=== PATIENT | female | born 1980 | race Caucasian/White ===

== ENCOUNTER 2017-09-06 13:47 | Inpatient (IN) | payer MEDICAID, OTHER ==
[2017-09-06 15:12] LABS: Basophils % (Auto) 0.2 % (0.0-1.8); Eosinophils # (Auto) 0.1 K/mm3 (0.0-0.4); Eosinophils % (Auto) 0.9 % (0.0-4.3); Hematocrit 37.1 % (30.3-42.9); Hemoglobin 12.1 gm/dl (10.1-14.3); Lymphocytes # (Auto) 1.7 K/mm3 (1.2-5.4); Lymphocytes % (Auto) 13.5 % (13.4-35.0); Mean Corpuscular HGB Conc 33 % (30-34); Mean Corpuscular Volume 79 fl (79-97); Monocytes # (Auto) 0.7 K/mm3 (0.0-0.8); Monocytes % (Auto) 5.2 % (0.0-7.3); Platelet Count 273 K/mm3 (140-440); Red Blood Count 4.67 M/mm3 (3.65-5.03); Red Cell Distribution Width 13.6 % (13.2-15.2)
[2017-09-06 15:15] LABS: Mean Corpuscular Hemoglobin 26 pg (28-32)
[2017-09-06] MEDS ORDERED: ZOFRAN IV ONE ×3 (15:46→22:04)
[2017-09-06] MEDS ORDERED: NACL 0.9% 1000 ML 1,000 ML IV ONE (15:46)
[2017-09-06] MEDS ORDERED: MORPHINE IV ONE ×3 (15:46→22:02)
--- NOTE | 2017-09-06 15:48 | Emergency Department Report ---
<DOMINIC HOYOS - Last Filed: 09/06/17 20:15> ED Abdominal Pain HPI - General Chief Complaint: Abdominal Pain Stated Complaint: RIGHT OVARY PAIN Time Seen by Provider: 09/06/17 15:37 Source: patient Mode of arrival: Ambulatory Limitations: No Limitations - History of Present Illness Initial Comments: 37-year-old female past medical history ovarian cysts presents with complaint of severe right lower quadrant abdominal pain worsened yesterday. Pain is sharp to crampy in nature. Patient is awake alert and oriented 3. Accompanied by sister at bedside. Denies any abdominal trauma. Patient states she has a history of large ovarian cyst which has not been addressed in the past. She denies vaginal bleeding or dysuria or increased urinary frequency. Patient speaks Mexican which I speak fluently. sister at bedside is bilingual. MD Complaint: abdominal pain Onset/Timin -: days(s) Location: suprapubic Radiation: suprapubic Migration to: RLQ Severity: moderate Severity scale (0 -10): 5 Quality: stabbing, aching Improves With: nothing Worsens With: nothing Associated Symptoms: denies other symptoms - Related Data Home Medications Medication Instructions Recorded Confirmed Last Taken Pnv95/Ferrous Fumarate/FA 1 tab PO DAILY 06/08/14 06/09/14 06/09/14 00:00 [ Vitamins] 1 tab Allergies Allergy/AdvReac Type Severity Reaction Status Date / Time No Known Allergies Allergy Verified 06/08/14 17:22 ED Review of Systems ROS: Stated complaint: RIGHT OVARY PAIN Other details as noted in HPI Constitutional: denies: chills, fever Eyes: denies: eye pain, eye discharge, vision change ENT: denies: ear pain, throat pain Respiratory: denies: cough, shortness of breath, wheezing Cardiovascular: denies: chest pain, palpitations Endocrine: no symptoms reported Gastrointestinal: abdominal pain. denies: nausea, diarrhea Genitourinary: denies: urgency, dysuria, discharge Musculoskeletal: denies: back pain, joint swelling, arthralgia Skin: denies: rash, lesions Neurological: denies: headache, weakness, paresthesias Psychiatric: denies: anxiety, depression Hematological/Lymphatic: denies: easy bleeding, easy bruising ED Past Medical Hx - Past Medical History Hx Hypertension: No Hx Congestive Heart Failure: No Hx Diabetes: No Hx Deep Vein Thrombosis: No Hx Renal Disease: No Hx Sickle Cell Disease: No Hx Seizures: No Hx Asthma: No Hx COPD: No Hx HIV: No - Social History Smoking Status: Never Smoker Substance Use Type: None - Medications Home Medications: Home Medications Medication Instructions Recorded Confirmed Last Taken Type Pnv95/Ferrous Fumarate/FA 1 tab PO DAILY 06/08/14 06/09/14 06/09/14 00:00 History [ Vitamins] 1 tab ED Physical Exam - General Limitations: No Limitations General appearance: alert, in no apparent distress - Head Head exam: Present: atraumatic, normocephalic - Eye Eye exam: Present: normal appearance, PERRL, EOMI - ENT ENT exam: Present: mucous membranes moist - Neck Neck exam: Present: normal inspection - Respiratory Respiratory exam: Present: normal lung sounds bilaterally. Absent: respiratory distress - Cardiovascular Cardiovascular Exam: Present: regular rate, normal rhythm. Absent: systolic murmur, diastolic murmur, rubs, gallop - GI/Abdominal GI/Abdominal exam: Present: tenderness (suprapubic discomfort), normal bowel sounds - Extremities Exam Extremities exam: Present: normal inspection - Back Exam Back exam: Present: normal inspection - Neurological Exam Neurological exam: Present: alert, oriented X3 - Psychiatric Psychiatric exam: Present: normal affect, normal mood - Skin Skin exam: Present: warm, dry, intact, normal color. Absent: rash ED Course Vital Signs 09/06/17 09/06/17 14:16 16:28 Temperature 97.6 F Pulse Rate 61 Respiratory 18 20 Rate Blood Pressure 113/58 O2 Sat by Pulse 100 Oximetry ED Medical Decision Making - Lab Data Result diagrams: 09/06/17 14:54 09/06/17 14:54 - Medical Decision Making A/P: ? intermittent right ovarian torsion, right-sided ovarian mass, abdominal pain 1-CT consistent with ultrasound, right-sided ovarian mass. possible intermittent torsion right ovary secondary to mass 2-appendix is normal on CAT scan 3-IV fluid resuscitation, IV analgesia, IV antiemetics, npo for now 4- pending return call for [employer] consultation, I signed out case to ISABEL Jo to f/u OB recommendations Critical care attestation.: If time is entered above; I have spent that time in minutes in the direct care of this critically ill patient, excluding procedure time. ED Disposition Clinical Impression: Pelvic pain, Ovarian mass Abdominal mass Qualifiers: Abdominal location: right lower quadrant Qualified Code(s): R19.03 - Right lower quadrant abdominal swelling, mass and lump Disposition: OP ADMIT IP TO THIS HOSP Condition: Stable Instructions: Ovarian Cyst (ED), Abdominal Pain (ED) Referrals: PRIMARY CARE, [Primary Care Provider] - 3-5 Days <RC JO - Last Filed: 09/06/17 21:40> ED Course - Consultations Consultation #1: 09/06/17 20:31 Dominic bowser spoke with Dr. Arrington via cell phone about patient history, physical exam, and Dr. Arrington from [facility] [employer] stated he will come and evaluate patient. ED Medical Decision Making - Lab Data Result diagrams: 09/06/17 14:54 09/06/17 14:54 - Medical Decision Making Dr. Arrington came and assessed patient and admits patient under his services. At time of admission, the patient does not seem toxic or ill in appearance. No acute signs of distress noted. Patient agrees to admission treatment plan of care. No further questions noted by the patient.
[2017-09-06 15:51] LABS: Alanine Aminotransferase 18 units/L (7-56); Albumin 4.3 g/dL (3.9-5); BUN/Creatinine Ratio 25; Blood Urea Nitrogen 10 mg/dL (7-17); Calcium 8.6 mg/dL (8.4-10.2); Hemolysis Index 5
[2017-09-06 16:00] LABS: Bacteria,Urine 1+ /HPF (Negative); Bilirubin,Urine NEG (Negative); Blood,Urine NEG (Negative); Color,Urine Yellow (Yellow); Mucus,Urine 2+ /HPF; Protein,Urine <15 mg/dL mg/dL (Negative); Urobilinogen,Urine < 2.0 mg/dL (<2.0)
--- NOTE | 2017-09-06 18:23 | Ultrasound Report ---
FINAL REPORT EXAM: US PELVIS DUPLEX DOPPLER COMP HISTORY: right sided adnexal pain, severe LMP 08/14/2017 TECHNIQUE: Ultrasound of the pelvis using transabdominal and transvaginal imaging PRIORS: None. FINDINGS: Uterus: Uterus is enlarged in size and normal and homogeneous in echogenicity without focal fibroid formation. The uterus measures 9.7 x 3.8 x 4.7 cm in size. Endometrial stripe: Borderline upper limits normal and uniform in thickness measuring 16.5 mm. Ovaries: Both ovaries appear normal in size and echogenicity with normal blood flow bilaterally. The right ovary measures 9.4 x 7.6 x 8.5 cm and the left ovary measures 2.8 x 1.9 x 3.2 cm in size. In the right ovary, there is a large anechoic cyst measuring 6.8 x 6.0 cm. Ultrasound characteristics suggest a benign entity. Other: There is no evidence for solid adnexal mass seen. A small amount of free fluid in the cul-de-sac is present. IMPRESSION: 1. Enlarged uterus 2. Endometrial stripe is upper limits normal in thickness 3. There is a large cyst present in the right ovary. This is likely benign.
[2017-09-06] MEDS ORDERED: DILAUDID IV ONE (19:05)
--- NOTE | 2017-09-06 19:51 | Cat Scan Report ---
FINAL REPORT EXAM: CT ABDOMEN PELVIS WO CON HISTORY: suprapubic and RLQ pain TECHNIQUE: Axial images were performed from the lung bases to the pubic symphysis. Multiplanar reformats are performed on the acquisition scanner. Comparison: Pelvic ultrasound same day FINDINGS: There is mild basal atelectasis. Unremarkable unenhanced liver, spleen, pancreas, bilateral adrenal glands. Gallbladder is moderately distended. There is mild fullness of the right renal pelvis and ureter to the level of a superior pelvic cystic lesion measuring approximately 10.8 x 7 centimeters. Sagittal images suggest this to be a septated lesion. There is mesenteric stranding. No renal stones are identified. There is a small supraumbilical hernia with a 1 centimeter neck containing fat. Uterus is canted to the left. The left ovary measures 3.2 x 3.1 centimeters. The distal right ureter is decompressed. There is trace free pelvic fluid. There is a normal air-filled appendix identified posterior to the pelvic cystic lesion. Imaged axial skeleton is unremarkable. IMPRESSION: 10.8 x 7 centimeter incompletely characterized right adnexal cystic lesion. Review of the ultrasound from earlier same day demonstrates peripheral vascular flow. Ovarian torsion cannot be entirely excluded however. Hounsfield units in this lesion are not simple and there does appear to be a septation. There is also mild surrounding soft tissue reticulation of the fat suggestive of an inflammatory or infiltrative component. Recommend ensuring the beta HCG is negative to exclude ectopic. Normal appendix. Prominent left ovary was shown to have multiple follicles on pelvic ultrasound. CT with IV contrast may help further characterize the lesion.
--- NOTE | 2017-09-06 21:32 | History and Physical Report ---
History of Present Illness Date of examination: 09/06/17 History of present illness: This is a 37-year-old female who understands Cameroonian well but sisters help with interpretation at bedside. Patient is para [id number] whose last menstrual period was 08/14/2017. She currently uses condoms for control. Patient states that she had been followed with some ovarian cysts [facility] with Dr. Yu this past fall. Patient states that time stated that she had ovarian cyst, large with the recommendation for surgery and was in the process of getting insurance coverage for surgery but stopped due to the holidays. Patient presents today with several days complaints of right lower quadrant pain. Workup in the emergency room revealed a large right ovarian cyst approximately 7 cm in diameter by ultrasound with good flow to ovary. Patient being admitted for control of pain and further evaluation ovarian cysts. Past History Past Medical History: No medical history, other (M[employer] BU[employer]DER history denies history of abnormal Pap smears last Pap smear was 2015. Denies history of sexually transmitted disease) Past Surgical History: No surgical history Social history: lives with family. denies: smoking, alcohol abuse Medications and Allergies Allergies Allergy/AdvReac Type Severity Reaction Status Date / Time No Known Allergies Allergy Verified 06/08/14 17:22 Home Medications Medication Instructions Recorded Confirmed Last Taken Type Pnv95/Ferrous Fumarate/FA 1 tab PO DAILY 06/08/14 06/09/14 06/09/14 00:00 History [ Vitamins] 1 tab Review of Systems Constitutional: no weight loss Ears, nose, mouth and throat: deferred Breasts: normal Cardiovascular: no chest pain, no orthopnea Respiratory: no cough Gastrointestinal: abdominal pain Genitourinary Female: pelvic pain, no abnormal vaginal bleeding Menstruation: period normal Rectal: no pain Integumentary: no rash, no pruritis Exam - Constitutional Vitals: Temp Pulse Resp BP Pulse Ox 97.6 F 61 20 113/58 100 09/06/17 14:16 09/06/17 14:16 09/06/17 16:28 09/06/17 14:16 09/06/17 14:16 General appearance: Present: mild distress - Respiratory Respiratory effort: normal - Cardiovascular Rhythm: regular - Extremities Extremities: no ischemia - Abdominal General gastrointestinal: Present: soft, tender Localized gastrointestinal: tender: RLQ, guarding: RLQ Female genitourinary: Present: deferred - Integumentary Integumentary: Present: clear, warm, dry - Psychiatric Psychiatric: appropriate mood/affect, intact judgment & insight Results - Labs CBC & Chem 7: 09/06/17 14:54 09/06/17 14:54 Labs: Abnormal lab results 09/06/17 09/06/17 09/06/17 Range/Units 14:54 14:54 16:08 WBC 12.6 H (4.5-11.0) K/mm3 MCH 26 L (28-32) pg Seg Neutrophils % 80.2 H (40.0-70.0) % Seg Neutrophils # 10.1 H (1.8-7.7) K/mm3 Potassium 3.4 L (3.6-5.0) mmol/L Creatinine 0.4 L (0.7-1.2) mg/dL Glucose 139 H (65-100) mg/dL Lactic Acid 2.90 H* (0.7-2.0) mmol/L - Imaging and Cardiology CT scan - abdomen: report reviewed CT scan - pelvis: report reviewed Assessment and Plan - Patient Problems (1) Ovarian cyst Current Visit: Yes Status: Acute Qualifiers: Laterality: right Qualified Code(s): N83.201 - Unspecified ovarian cyst, right side Plan to address problem: Ultrasound reviewed. Patient with a history of ovarian cysts and states that the has been advised to have surgery in the past. Ultrasound report benign appearance of cyst with good blood flow. Will admit for pain control and further evaluation of ovarian cyst. (2) Pelvic pain Current Visit: Yes Status: Acute Plan to address problem: Patient pain appears to be secondary to above patient had some appendicitis ruled out. We'll attempt to give relief of pain.
[2017-09-06] MEDS ORDERED: ZOFRAN ONE (21:56)
[2017-09-06] MEDS ORDERED: MORPHINE ONE (21:57)
[2017-09-06] MEDS ORDERED: SODIUM CHLORIDE FLUSH SYRINGE 10 ML IV SCH (23:12)
[2017-09-06] MEDS ORDERED: ZOFRAN IV PRN (23:12)
[2017-09-06] MEDS ORDERED: SODIUM CHLORIDE FLUSH SYRINGE 10 ML IV PRN (23:12)
[2017-09-06] MEDS ORDERED: MOTRIN PO PRN (23:12)
[2017-09-06] MEDS ORDERED: TYLENOL PO PRN (23:12)
[2017-09-06] MEDS: TORADOL IV SCH (23:45)
[2017-09-07] MEDS: NORCO 5/325 PO PRN ×4 (03:53→19:47)
[2017-09-07] MEDS: TORADOL IV SCH ×3 (06:38→22:15)
--- NOTE | 2017-09-07 20:42 | Progress Note ---
Assessment and Plan - Patient Problems (1) Abdominal mass Current Visit: Yes Status: Acute Qualifiers: Abdominal location: right lower quadrant Qualified Code(s): R19.03 - Right lower quadrant abdominal swelling, mass and lump Plan to address problem: -ct with iv contrast was recommended to better define the characteristics of the mass. Will obtain in the am. -make npo after midnight in case of surgery in the am -case d/w Dr. Guzman on coming provider in the am and she agrees with above stated plan of care. (2) Ovarian mass Current Visit: Yes Status: Acute Plan to address problem: -ct with iv contrast was recommended to better define the characteristics of the mass. Will obtain in the am. -make npo after midnight in case of surgery in the am -case d/w Dr. Guzman on coming provider in the am and she agrees with above stated plan of care. (3) Pelvic pain Current Visit: Yes Status: Acute Plan to address problem: -ct with iv contrast was recommended to better define the characteristics of the mass. Will obtain in the am. -make npo after midnight in case of surgery in the am -case d/w Dr. Guzman on coming provider in the am and she agrees with above stated plan of care. Subjective - Subjective Date of service: 09/07/17 Principal diagnosis: Pelvic mass; abdominal pain Interval history: Pt admitted for pain management for pelvic/adnexal mass. Pt has gotten both IV and po pain meds. Pt states the pain subsides for a few hours but then returns with more intensity. Pt advised that as long as she has this cyst she will cont to have pain and that she was given time today to determine if she would respond to the pain meds that were given. All information was given via hospital insurance clerk via the language line. Pt and expressed understanding. Pt requesting to take a shower at this time. She also c/o some nausea with pain meds that were given. Patient reports: ambulating normally, nauseated (after pain meds.) Objective - Vital Signs Latest vital signs: Vital Signs Temp Pulse Resp BP BP Pulse Ox 09/07/17 16:54 97.9 F 70 16 99/56 93 09/07/17 12:10 98.1 F 82 20 105/63 92 09/07/17 08:30 97.9 F 79 20 99/62 95 09/07/17 04:15 98.2 F 82 18 95/45 09/06/17 23:45 98.2 F 83 18 108/59 09/06/17 22:58 98.5 F 83 17 112/63 99 Intake and Output 09/07/17 09/07/17 09/07/17 06:59 14:59 22:59 Intake Total 360 710 120 Balance 360 710 120 Intake: Oral 360 710 120 Other: Total, Intake Amount 240 290 120 Voiding Method Toilet # Voids Void 1 1 1 - Exam Cardiovascular: Present: Normal S1, Normal S2 Lungs: Present: Clear to auscultation, Normal air movement Abdomen: Present: normal appearance, soft, tenderness, guarding (voluntary), other (no rebound). Absent: distention Extremities: Present: normal, tenderness, edema
[2017-09-08] MEDS: NORCO 5/325 PO PRN (01:15)
[2017-09-08] MEDS: TORADOL IV SCH ×2 (05:46→13:45)
--- NOTE | 2017-09-08 08:28 | Progress Note ---
Assessment and Plan - Patient Problems (1) Ovarian cyst Current Visit: Yes Status: Acute Qualifiers: Laterality: right Qualified Code(s): N83.201 - Unspecified ovarian cyst, right side (2) Pelvic pain Current Visit: Yes Status: Acute Plan to address problem: No evidence of acute abdomen She was informed of the importance of completing her evaluation to determine if there's any evidence of malignancy. She agrees with proceeding with CT scan now. She's aware that her evaluation is limited here in the hospital and she may need to consider have surgery performed by a GYNONC if questionable concern for cancer. S/w Prakash Yu who assessed her for the same symptoms last year, he will attempt to obtain her previous records. She voiced understanding, no further questions Subjective - Subjective Date of service: 09/08/17 Principal diagnosis: Left ovarian cyst, pelvic pain Interval history: The Language line was used for translation. This patient has had a long history of pelvic pain and pelvic cyst, she has been evaluated over the last year for the same symptoms. Today she is scheduled for IV CT per recommendation by radiology Patient reports: voiding normally, ambulating normally Objective - Vital Signs Latest vital signs: Vital Signs Temp Pulse Resp BP Pulse Ox 09/08/17 05:55 98.1 F 18 98/55 09/07/17 23:52 98.6 F 76 18 95/59 97 09/07/17 21:30 98.3 F 67 18 98/55 98 09/07/17 16:54 97.9 F 70 16 99/56 93 09/07/17 12:10 98.1 F 82 20 105/63 92 09/07/17 08:30 97.9 F 79 20 99/62 95 Intake and Output 09/07/17 09/08/17 09/08/17 22:59 06:59 14:59 Intake Total 120 120 Balance 120 120 Intake: Oral 120 120 Other: Total, Intake Amount 120 120 # Voids Void 1 1 - Exam Breasts: Present: deferred Cardiovascular: Present: Regular rate Lungs: Present: Clear to auscultation Abdomen: Present: normal appearance, soft, normal bowel sounds. Absent: distention, tenderness, guarding Extremities: Present: normal. Absent: tenderness, edema
[2017-09-08] MEDS ORDERED: NORCO 5/325 PO PRN (08:30)
--- NOTE | 2017-09-08 10:26 | Cat Scan Report ---
CT scan of abdomen and pelvis with IV contrast: Compared to 09/06/17. History: Pelvic pain with ovarian mass. Findings: Normal lung bases. Minimal pleural thickening bilaterally. No pleural effusion. No pericardial effusion. Normal liver spleen pancreas and gallbladder. Normal adrenals kidneys and bladder. There is large ovarian mass identified on the originating from the right ovary. The mass is complex and predominantly cystic measuring 11 x 7 cm. Normal appendix. No evidence of diverticulitis. Impression: Complex, predominantly cystic, right ovarian mass.
--- NOTE | 2017-09-08 14:08 | Event Note ---
Date: 09/08/17 Again spoke with the patient via Donn on the language line (#[id number]). CT scan results were reviewed with patient. She was informed of the complex nature of the ovarian structure that may be a sign of ovarian cancer. She was again informed that this procedure may need to be performed by an oncologist who specializes in ovarian cancer. She was also informed that if this is ovarian cancer surgeries performed by someone who is not a cancer specialist it may make her condition worse. She can planes now pain requesting pain medication. Her previous records of this evaluation have not been received as of yet. She was informed that although her previous evaluation appeared to be consistent with a benign ovarian cyst, since her symptoms have worsened and there are no images or records to compare that indeed this may be a cancer. She was given the option to go home with follow-up with a CALCINER OPERATOR oncologist and pain medicine or to proceed with surgery. She's requested to review the consent and to discuss options with her . She was given the [employer] frequently ask questions handout concerning ovarian cyst. She was given this in Setswana, there's a copy on her chart as well. She was also given a consent for open removal of ovary and any other indicated procedures.
--- NOTE | 2017-09-08 14:24 | Event Note ---
Date: 09/08/17
--- NOTE | 2017-09-08 16:53 | Event Note ---
Date: 09/08/17 Per Madisyn RN pt desires to proceed with surgery, attempted add today however the only time now available will zi ~9p. Will schedule for tomorrow. Will hold toradol for now and narcotics until she has been evaluated by Anesthesia. Clear liquids for now, NPO after MN.
[2017-09-08] MEDS: TYLENOL PO PRN (20:37)
[2017-09-09] MEDS: TYLENOL PO PRN ×2 (02:05→08:51)
[2017-09-09] MEDS ORDERED: ANCEF/STERILE WATER 2 GM/20 ML 2 GM/20 ML SYRINGE IV NR (05:30)
--- NOTE | 2017-09-09 06:57 | Anesthesia Day of Surgery ---
Anesthesia Day of Surgery - Day of Surgery Patient Examined: Yes Patient H&P Reviewed: Yes Patient is NPO: Yes Beta Blockers: Yes Cardiac Clearance: No Pulmonary Clearance: No
[2017-09-09] MEDS ORDERED: NACL 0.9% 1000 ML 1,000 ML IV SCH (07:00)
--- NOTE | 2017-09-09 07:02 | Anesthesia Consultation ---
Anesthesia Consult and Med Hx Date of service: 09/09/17 - Airway Anesthetic Teeth Evaluation: Good ROM Head & Neck: Adequate Mental/Hyoid Distance: Adequate Mallampati Class: Class II Intubation Access Assessment: Probably Good - Pulmonary Exam CTA: Yes - Cardiac Exam Cardiac Exam: RRR - Pre-Operative Health Status ASA Pre-Surgery Classification: ASA2 Proposed Anesthetic Plan: General - Pre-Anesthesia Comment Pre-Anesthesia Comments: pelvic abdominal mass elevated white count - Pulmonary Hx Asthma: No COPD: No Hx Pneumonia: No - Cardiovascular System Hx Hypertension: No - Central Nervous System Hx Seizures: No Hx Psychiatric Problems: No - Endocrine Hx Renal Disease: No Hx End Stage Renal Disease: No Hx Hypothyroidism: No Hx Hyperthyroidism: No - Hematic Hx Anemia: No Hx Sickle Cell Disease: No - Other Systems Hx Alcohol Use: No
[2017-09-09] MEDS ORDERED: DECADRON ONE (13:18)
[2017-09-09] MEDS ORDERED: SUBLIMAZE ONE (13:18)
[2017-09-09] MEDS ORDERED: DIPRIVAN 10 MG/ML IV ONE (13:18)
[2017-09-09] MEDS ORDERED: ZOFRAN ONE ×2 (13:18→14:54)
[2017-09-09] MEDS ORDERED: ZEMURON IV ONE (15:00)
[2017-09-09] MEDS: DILAUDID IV PRN ×4 (15:16→17:25)
[2017-09-09] MEDS ORDERED: NEOSTIGMINE ONE (15:23)
[2017-09-09] MEDS ORDERED: ROBINUL ONE (15:23)
[2017-09-09] MEDS ORDERED: TORADOL ONE (15:47)
[2017-09-09] MEDS ORDERED: TORADOL IV PRN (15:54)
--- NOTE | 2017-09-09 16:24 | Operative Report ---
Operative Report Operative Report: Date: 09/09/2017 Preoperative diagnosis: 1. Large complex pelvic mass 2. Pelvic pain Postoperative diagnosis: 1. Large complex pelvic mass 2. Pelvic pain Procedure: 1. Exploratory laparotomy 3. Right salpingo-oophorectomy Surgeon: Lily Guzman MD Belt Back Operator: [] Anesthesiologist: Dr. Rankin Anesthesia: Gen. anesthesia EBL: 100 mL Findings: Approximately 12 cm discolored right ovary with a normal right tube. Uterus left tube and ovary appeared to be normal Procedure: Patient was taken to the OR and placed in supine position. Gen. anesthesia was induced. Exam under anesthesia revealed a large mass in the right lower quadrant. Luciano catheter was placed and then she was prepped and draped in the usual sterile fashion. Timeout was performed. This incision was made and extended fascia which was incised and extended in a lateral direction. The overlying fascia was sharply dissected away from the underlying rectus muscles in the superior inferior direction. The midline was entered bluntly. Pelvic washings were performed and sent to pathology. Patient was placed in steep Trendelenburg position. The O'Jackson O'Ahumada self-retaining retractor was placed. The bowel was placed in the upper abdomen and secured with the abdominal blade. The bladder blade was then placed and secured. The mass was elevated out of the pelvis. The pelvic sidewall was inspected and the ureter was found to be peristaltic and away from the operative field. The infundibulopelvic ligament was doubly clamped then the medial fallopian tube with the utero-ovarian ligament were doubly clamped. The ovary with tube were excised intact. The infundibular pelvic ligament was suture ligated with 0 Vicryl followed by a transfixation stitch of 0 Vicryl. The same was performed and the remainder of the adnexa. The pelvis was irrigated with warm normal saline. Hemostasis was noted. Again attention was turned to the right ureter that was noted to be intact and peristalsing. No other abnormalities were noted and no obvious evidence of cancer was noted. Once hemostasis was noted Surgicel was placed over the operative field. The bladder blade and abdominal blade were removed and the O'Jackson-O'Ahumada retractor was removed. The laparotomy sponges were removed count was performed that was found to be correct. Then the rectus muscles were reapproximated using 0 Vicryl in interrupted [id number] stitches 3. Once hemostasis was noted fascia was reapproximated using 0 Prilosec one a simple running stitch. Once hemostasis was noted the subcutaneous adipose tissue was reapproximated using 0 Vicryl in interrupted simple stitch 3. The skin was reapproximated using 4-0 Vicryl on a Pardeep needle in a subcuticular manner. Drainage of clear yellow urine was noted at the end of the procedure. Counts were correct 3. Patient tolerated procedure well taken to recovery room stable.
--- NOTE | 2017-09-09 17:30 | Post Anesthesia Evaluation ---
- Post Anesthesia Evaluation Patient Participated: Yes Airway Patent: Yes Stable Respiratory Function: Yes Nausea/Vomiting: No Temp > 96.8F: Yes Pain Manageable: Yes Adequeate Hydration: Yes Anesthesia Complications: No
[2017-09-09] MEDS ORDERED: REGLAN PO PRN (19:17)
[2017-09-09] MEDS ORDERED: TYLENOL PR PRN (19:17)
[2017-09-09] MEDS ORDERED: ANCEF/NS 1 GM/50 ML 1 GM/50 ML BAG IV SCH (19:17)
[2017-09-09] MEDS ORDERED: REGLAN IV PRN (19:17)
[2017-09-09] MEDS: MORPHINE IV PRN (20:20)
[2017-09-09] MEDS: TYLENOL PO SCH (20:20)
[2017-09-09] MEDS ORDERED: PEPCID IV SCH (22:00)
[2017-09-09] MEDS: ceFAZolin 1 GM in NACL 0.9% 20 ML IV SCH (22:52)
[2017-09-10] MEDS: TORADOL IV SCH ×3 (00:05→14:23)
[2017-09-10] MEDS: MORPHINE IV PRN (04:21)
[2017-09-10 04:37] LABS: Hematocrit 30.2 % (30.3-42.9)
[2017-09-10] MEDS: TYLENOL PO SCH (06:35)
[2017-09-10] MEDS: ceFAZolin 1 GM in NACL 0.9% 20 ML IV SCH (06:39)
[2017-09-10] MEDS ORDERED: AMMONIA INHALANT IH ONE (09:04)
[2017-09-10] MEDS ORDERED: NACL 0.9% 500 ML 500 ML IV ONE (09:21)
--- NOTE | 2017-09-10 10:01 | Progress Note ---
Assessment and Plan - Patient Problems (1) History of right salpingo-oophorectomy Current Visit: Yes Status: Acute (2) Ovarian cyst Current Visit: Yes Status: Resolved Qualifiers: Laterality: right Qualified Code(s): N83.201 - Unspecified ovarian cyst, right side (3) Pelvic pain Current Visit: Yes Status: Resolved (4) Vasovagal episode Current Visit: Yes Status: Acute Plan to address problem: No evidence of bleeding, BP and HR stable and back to normal for her. CBC pending, will complete fluid bolus, NPO for now. Observe closely, only up with staff assistance Subjective - Subjective Date of service: 09/10/17 Principal diagnosis: POD#1 RSO Interval history: s/p vasovagal episode. Lying in bed with at bedside. Both respond appropriately to [place]ian. She was alert and states she feels better. Objective - Vital Signs Latest vital signs: Vital Signs Temp Pulse Resp BP BP Pulse Ox 09/10/17 04:50 98.7 F 72 18 110/58 98 09/10/17 00:29 99.1 F 79 18 102/54 99 09/09/17 20:49 98.4 F 75 18 104/60 100 09/09/17 18:20 98.7 F 78 104/58 09/09/17 17:40 17 09/09/17 17:30 98.3 F 79 17 111/64 99 09/09/17 17:25 18 09/09/17 17:15 71 17 109/56 98 09/09/17 17:11 18 09/09/17 16:45 72 22 105/59 98 09/09/17 16:30 75 19 110/63 98 09/09/17 16:27 16 09/09/17 16:15 73 18 110/65 100 09/09/17 16:00 71 21 110/59 100 09/09/17 15:57 18 09/09/17 15:46 16 09/09/17 15:45 71 9 L 106/58 100 09/09/17 15:40 69 9 L 101/57 100 09/09/17 15:35 67 10 L 104/53 100 09/09/17 15:30 97.5 F L 80 16 97/53 98 09/09/17 15:16 18 09/09/17 13:00 99.7 F H 82 16 102/55 99 09/09/17 11:27 98.5 F 78 20 99/50 98 Intake and Output 09/09/17 09/10/17 09/10/17 22:59 06:59 14:59 Intake Total 700 120 Output Total 180 1500 Balance 520 -1380 Intake: IV 700 Oral 120 Output: Urine 180 1500 Indwelling Catheter 1500 Uretheral (Luciano) 90 Other: Total, Intake Amount 120 Total, Output Amount 700 - Exam Breasts: Present: deferred Cardiovascular: Present: Regular rate (70's) Lungs: Present: Clear to auscultation, Normal air movement Abdomen: Present: normal appearance, soft, normal bowel sounds. Absent: distention, guarding Extremities: Present: normal. Absent: tenderness Incision: Present: normal, dry, intact - Labs Labs: Abnormal lab results 09/10/17 Range/Units 04:04 Hgb 10.0 L (10.1-14.3) gm/dl Hct 30.2 L (30.3-42.9) %
[2017-09-10 10:42] LABS: Hematocrit 30.1 % (30.3-42.9); Mean Corpuscular HGB Conc 33 % (30-34); Mean Corpuscular Hemoglobin 27 pg (28-32); Mean Corpuscular Volume 82 fl (79-97); Platelet Count 195 K/mm3 (140-440); Red Blood Count 3.67 M/mm3 (3.65-5.03); Red Cell Distribution Width 13.6 % (13.2-15.2)
[2017-09-10] MEDS ORDERED: PEPCID PO SCH (22:00)
[2017-09-10] MEDS: NORCO 5/325 PO PRN (22:35)
[2017-09-11] MEDS ORDERED: MOTRIN PO PRN
[2017-09-11] MEDS: NORCO 5/325 PO PRN (06:15)
[2017-09-11 09:55] VITALS: BP 95/50
--- NOTE | 2017-09-11 15:23 | Discharge Summary ---
Providers - Providers Date of Admission: 09/08/17 08:28 Date of discharge: 09/11/17 Attending physician: BAUDILIO KWON Primary care physician: ANTIQUE COLLECTOR Hospitalization Condition: Good Procedures: Laparotomy with unilateral salpingo-oophorectomy Hospital course: Please see dictated H&P.Patient was admitted and underwent above procedure without complications. Her post operative course was benign she was afebrile throughout. Patient postoperative day 1 hematocrit was in an acceptable range. Patient had no orthostatic symptoms. Patient was tolerating regular diet and voiding without difficulty at time of discharge. Patient incision was healing well without evidence of infection. Disposition: DC-01 TO HOME OR SELFCARE - Discharge Diagnoses (1) Ovarian cyst Status: Resolved Qualifiers: Laterality: right Qualified Code(s): N83.201 - Unspecified ovarian cyst, right side (2) Pelvic pain Status: Resolved Core Measure Documentation - Palliative Care Palliative Care/ Comfort Measures: Not Applicable - Core Measures Any of the following diagnoses?: none Exam - Physical Exam Narrative exam: The patient answers questions appropriately when asked and [place]. Patient's sister also available to help with the interpretation. - Constitutional Vitals: Temp Pulse Resp BP Pulse Ox 98.2 F 72 18 95/50 97 09/11/17 07:56 09/11/17 07:56 09/11/17 07:56 09/11/17 07:56 09/11/17 07:56 General appearance: Present: no acute distress - Respiratory Respiratory effort: normal - Cardiovascular Rhythm: regular - Extremities Extremities: no ischemia, pulses intact - Abdominal General gastrointestinal: Present: soft, tender (appropriately.), other ( incision healing well) Female genitourinary: Present: deferred - Rectal Rectal Exam: deferred - Integumentary Integumentary: Present: clear, warm, dry - Psychiatric Psychiatric: appropriate mood/affect Plan Activity: advance as tolerated Diet: regular Wound: open to air Additional Instructions: Patient office for fever chills nausea vomiting or pain uncontrolled by pain relief. Patient instructed no heavy lifting 6 weeks. No sex for 6 weeks. He should have postoperative visit scheduled office on Follow up with: PRIMARY CARE, [Primary Care Provider] - 3-5 Days Forms: [facility] Discharge Summary, Discharge Signature Page Prescriptions: Ibuprofen [Motrin 800 MG tab] 800 mg PO TID PRN #30 tablet PRN Reason: Pain oxyCODONE /ACETAMINOPHEN [Percocet 5/325 mg] 1 - 2 tab PO Q4HR PRN #30 tablet PRN Reason: Pain
== END 2017-09-11 15:40 | disposition home or self-care (01) | DRG 743 ==
LOC: ED 13:47 → OB 22:31 → OBSVTOIN 09-08 08:28 → OB 09-09 20:03
PROVIDERS: ADMIT Obstetrics & Gynecology; ATTEND Obstetrics & Gynecology
PROC: 0UT50ZZ Resection of Right Fallopian Tube, Open Approach (ICD-10-PCS; principal; 2017-09-09)
PROC: 0UT00ZZ Resection of Right Ovary, Open Approach (ICD-10-PCS; 2017-09-09)
DX: N83.201 Unspecified ovarian cyst, right side (principal)
CPT/HCPCS: 36415; 74176; 74177; 76830; 80053; 81001; 82140; 82962; 84702; 85014; 85018; 85025; 85027; 86850; 86900; 86901; 88112; 88305; 93975; 96361; 96374; 96375; 96376; G0378; J0690; J1100; J1170; J1885; J2270; J2405; J2704; J2710; J3010; J7030; Q9967